=== PATIENT | female | born 1935 | race Caucasian/White ===

== ENCOUNTER → 2017-10-14 | Day surgery (SDC) | payer OTHER ==
[2017-10-11 11:59] LABS: BASOPHILS % 0.3 % (0.0-1.0); EOSINOPHILS # (AUTO) 0.1 (0.0-0.4); EOSINOPHILS % 1.6 % (0.0-6.0); HEMATOCRIT 37.3 % (34.2-44.1); HEMOGLOBIN 12.7 g/dL (12.0-16.0); LYMPHOCYTES # (AUTO) 2.2 (1.0-3.2); LYMPHOCYTES % 24.4 % (18.0-39.1); MEAN CORPUSCULAR HEMOGLOBIN 28.9 pg (28-32); MEAN CORPUSCULAR VOLUME 84.8 fL (81-99); MONOCYTES # (AUTO) 0.7 (0.2-0.8); MONOCYTES % 7.4 % (4.4-11.3); NEUTROPHILS # (AUTO) 5.8 (2.1-6.9); PLATELET COUNT 207 x10e3/uL (140-360); RED CELL DISTRIBUTION WIDTH 13.7 % (11.7-14.4)
[2017-10-11 12:31] LABS: ANION GAP 14.2 mmol/L (8-16); CALCIUM 10.2 mg/dL (8.4-10.2); CREATININE, SERUM 1.23 mg/dL (0.57-1.11); POTASSIUM 4.2 mmol/L (3.5-5.1)
--- NOTE | 2017-10-11 12:39 | Diagnostic Imaging Report ---
PROCEDURE: Frontal and lateral views of the chest. COMPARISON: None. INDICATIONS: PRE-OPERATIVE CHEST X-RAY FOR SLIM. HAND SURGERY FINDINGS: Lines/tubes: None. Lungs: The lungs are well inflated and clear. There is no evidence of pneumonia or pulmonary edema. Pleura: There is no pleural effusion or pneumothorax. Heart and mediastinum: Enlarged cardiac silhouette. Pulmonary vasculature is normal. Atherosclerotic calcification aortic arch. Bones: No acute bony abnormality. IMPRESSION: 1. enlarged cardiac silhouette, without acute cardiopulmonary disease. Delmer Bacon M.D. Dictated by: Delmer Bacon M.D. on 10/11/2017 at 12:41 Electronically approved by: Delmer Bacon M.D. on 10/11/2017 at 12:41
[~2017-10-14] MED LIST: ACETAMINOPHEN 1000 MG/100 ML IV ONE; ATORVASTATIN CA10 MG PO; CARVEDILOL3.125 MG PO; CEFAZOLIN SOD 1 GM VIAL ONE; DEXAMETHASONE SOD PHOS INJ 4 MG/ML VIAL ONE; FENTANYL CITRATE/PF 100MCG/2 ML INJ ONE; FUROSEMIDE40 MG PO; GLIMEPIRIDE2 MG PO; LIDOCAINE HCL 2% LOCAL INJ 5 ML SDV VIAL INJ ONE; LISINOPRIL2.5 MG PO; MUPIROCIN 2% OINT 22 GM TUBE ONE; MYRBETRIQ50 MG PO; ONDANSETRON HCL INJ 2 MG/ML VIAL ONE; PROPOFOL IV EMULSION 10 MG/ML 20 ML VIAL ONE; SEVOFLURANE INHAL SOLN 250 ML PEN BTL ONE; SPIRONOLACTONE25 MG PO; XARELTO10 MG PO
--- OUTSIDE RECORDS SUMMARY | 2017-10-14 05:57 | XMS REPORT ---
Author Organization Unknown Address [address] [place] [address] Phone [phone] Care Team Providers Care Cash On Delivery Clerk Name Role Phone RADHAMES PACHECO MD 82 [phone] DEON RABAGO MD 129 [phone] Allergies Code Code System Name Reaction Severity Status Onset NKDA Medications Name Status Start Date Stop Date Adacel (Tdap Adolesn/Adult)(PF)2 Lf-(2.5-5-3-5)-5 Lf/0.5 mL IM syringe Completed 09/03/2017 atorvastatin 10 mg tablet Active Not available carvedilol 3.125 mg tablet Active Not available doxycycline hyclate 100 mg capsule Completed 03/11/2017 Fluzone High-Dose [id number] (PF) 180 mcg/0.5 mL intramuscular syringe Completed 03/11/2017 furosemide 20 mg tablet Active Not available glimepiride 2 mg tablet Take 1 tablet every day by oral route. Active Not available glimepiride 4 mg tablet Completed 09/03/2017 lisinopril 2.5 mg tablet Active Not available Myrbetriq 50 mg tablet,extended release TAKE 1 TABLET BY MOUTH ONCE DAILY Active Not available ReliaMed Mini Lancing Device Completed 09/03/2017 spironolactone 25 mg tablet Active Not available tobramycin 0.3 %-dexamethasone 0.1 % eye drops,suspension Active Not available True Metrix Glucose Test Strip Active Not available True Metrix Level 1 solution Completed 07/11/2017 TRUEplus Lancets 28 gauge Active Not available Tylenol Arthritis Pain 650 mg tablet,extended release Take 2 tablets every 8 hours by oral route as needed for 90 days. Active Not available Xarelto 15 mg tablet Active Not available Zithromax Z-Bowen 250 mg tablet TAKE 2 TABLETS (500 MG) BY ORAL ROUTE ONCE DAILY FOR 1 DAY THEN 1 TABLET (250 MG) BY ORAL ROUTE ONCE DAILY FOR 4 DAYS Active Not available Zostavax (PF) 19,400 unit/0.65 mL subcutaneous suspension Completed 2017 Problems Name Status Onset Date Source Type II Diabetes Mellitus Uncontrolled Unknown 03/11/2017 Hyperlipidemia Active 03/11/2017 Recurrent Major Depression Active 03/11/2017 Atrial Fibrillation Active 03/11/2017 Chronic Combined Systolic and Diastolic Heart Failure Active 03/11/2017 Chronic Kidney Disease Stage 3 Active 03/11/2017 Osteopenia Active 03/11/2017 Memory Impairment Active 03/11/2017 Chronic Kidney Disease Due to Type 2 Diabetes Mellitus Active 03/11/2017 Nocturia Active 06/29/2017 Benign Hypertensive Heart Disease Active 07/11/2017 Type 2 Diabetes Mellitus Active 07/12/2017 Diabetic Peripheral Neuropathy Active 08/02/2017 Carpal Tunnel Syndrome Active 08/02/2017 Procedures Date Name Performed by Tonsillectomy Information not available 06/28/2017 XR, Knee, 3 View [facility] [address] [place] [address] (Work [address]) 07/11/2017 Bone Density [facility] [address] [facility] [address] [place] [address] (Work Place) Lab Results Date Name Specimen Result Interpretation Description Value Range Status Address 07/11/2017 TSH, Serum or Plasma Normal Tsh 2.18 mIU/L 0.40-4.50 mIU/L [facility]: [address] 07/11/2017 HbA1C (Hemoglobin a1C), Blood High Hemoglobin a1C 6.0 % of total HGB <5.7 % of total HGB [facility]: [address] EAG (mg/dL) 126 (calc) [facility]: [address] EAG (mmol/L) 7.0 (calc) [facility]: [address] 07/11/2017 Lipid Panel, Serum Normal Cholesterol, Total 190 mg/dL <200 mg/dL [facility]: [address] Normal HDL Cholesterol 56 mg/dL >50 mg/dL [facility]: [address] Normal Triglycerides 91 mg/dL <150 mg/dL [facility]: [address] High LDL-cholesterol 115 mg/dL (calc) [facility]: [address] Normal Chol/hdlc Ratio 3.4 (calc) <5.0 (calc) [facility]: [address] High Non HDL Cholesterol 134 mg/dL (calc) <130 mg/dL (calc) [facility]: [address] 07/11/2017 CBC W/ Auto Diff Normal White Blood Cell Count 6.9 thousand/uL 3.8-10.8 thousand/uL [facility]: [address] [place] Normal Red Blood Cell Count 4.60 million/uL 3.80-5.10 million/ uL [facility]: [address] [place] Normal Hemoglobin 12.8 g/dL 11.7-15.5 g/dL [facility]: [address] [place] Normal Hematocrit 40.6 % 35.0-45.0 % [facility]: [address] [place] Normal Mcv 88.3 fL 80.0-100.0 fL [facility]: [address] [place] Normal Mch 27.8 pg 27.0-33.0 pg [facility]: [address] [place] Low Mchc 31.5 g/dL 32.0-36.0 g/dL [facility]: [address] [place] Normal Rdw 13.0 % 11.0-15.0 % [facility]: [address] [place] Normal Platelet Count 204 thousand/uL 140-400 thousand/uL [facility]: [address] [place] Normal Mpv 10.6 fL 7.5-12.5 fL [facility]: [address] [place] Normal Absolute Neutrophils 4271 cells/uL 2727-4065 cells/uL [facility]: [address] [place] Absolute Band Neutrophils [facility]: [address] [place] Absolute Metamyelocytes [facility]: [address] [facility] Absolute Myelocytes [facility]: [address], [place] Absolute Promyelocytes [facility]: [address], [place] Normal Absolute Lymphocytes 1732 cells/uL 850-3900 cells/uL [facility]: [address], [place] Normal Absolute Monocytes 704 cells/uL 200-950 cells/uL [facility]: [address], [place] Normal Absolute Eosinophils 152 cells/uL 15-500 cells/uL [facility]: [address], [place] Normal Absolute Basophils 41 cells/uL 0-200 cells/uL [facility]: [address], [place] Absolute Blasts [facility]: [address], [place] Absolute Nucleated RBC [facility]: [address], [place] Normal Neutrophils 61.9 % [facility]: [address], [place] Band Neutrophils [facility]: [address], [place] Metamyelocytes [facility]: [address], [place] Myelocytes [facility]: [address], [place] Promyelocytes [facility]: [address], [place] Normal Lymphocytes 25.1 % [facility]: [address], [place] Reactive Lymphocytes [facility]: [address], [place] Normal Monocytes 10.2 % [facility]: [address], [place] Normal Eosinophils 2.2 % [facility]: [address], [place] Normal Basophils 0.6 % [facility]: [address], [place] Blasts [facility] : [address], [place] Nucleated RBC [facility]: [address], [place] Comment(s) [facility]: [address], [place] 07/11/2017 CMP, Serum or Plasma High Glucose 105 mg/dL 65-99 mg/ dL [facility]: [address], [place] High Urea Nitrogen (BUN) 28 mg/dL 7-25 mg/dL [facility]: [address] High Creatinine 1.24 mg/dL 0.60-0.88 mg/dL [facility]: [address] Low eGFR Non-afr. Ben[place] 40 mL/min/1.73m2 > or=60 mL/min/ 1.73m2 [facility]: [address] Low eGFR 47 mL/min/1.73m2 > or=60 mL/min/ 1.73m2 [facility]: [address] High BUN/creatinine Ratio 23 (calc) 6-22 (calc) [facility]: [address] Normal Sodium 137 mmol/L 135-146 mmol/L [facility]: [address] Normal Potassium 4.2 mmol/L 3.5-5.3 mmol/L [facility]: [address] Normal Chloride 101 mmol/L 98-110 mmol/L [facility]: [address] Normal Carbon Dioxide 25 mmol/L 20-31 mmol/L [facility]: [address] Normal Calcium 9.8 mg/dL 8.6-10.4 mg/dL [facility]: [address] Normal Protein, Total 7.8 g/dL 6.1-8.1 g/dL [facility]: [address] Normal Albumin 4.2 g/dL 3.6-5.1 g/dL [facility]: [address] Normal Globulin 3.6 g/dL (calc) 1.9-3.7 g/dL (calc) [facility]: [address] Normal Albumin/globulin Ratio 1.2 (calc) 1.0-2.5 (calc) [facility]: [address] Normal Bilirubin, Total 0.8 mg/dL 0.2-1.2 mg/dL [facility]: [address] Normal Alkaline Phosphatase 71 U/L 33-130 U/L [facility]: [address] Normal Ast 19 U/L 10-35 U/L [facility]: [address] [place] [address], [place] Normal Alt 8 U/L 6-29 U/L [facility]: [address] 07/11/2017 Urinalysis, Dipstick Color Color light yellow [facility]: [address] [place] [address], [place] Color Appearance clear [facility]: [address] [place] [address] , [place] Color Glucose negative [facility]: [address] [place] [address] , [place] Color Bilirubin negative [facility]: [address] [place] [address], [place] Color Ketones negative [facility]: [address] [place] [address] , [place] Color Specific Morton 1.020 [facility]: [address] [place] [address], [place] Color Blood negative [facility]: [address] [place] [address], [place] Color PH 7.0 [facility]: [address] [place] [address], [place] Color Protein negative [facility]: [address] [place] [address] , [place] Color Urobilinogen 0.2 [facility]: [address] [place] [address] , [place] Color Nitrites negative [facility] [address] [place] [address], [place] Color Leukocytes negative [facility]: [address] [place] [address], [place] 07/11/2017 Glucose, Fingerstick, Blood Blood Glucose: mg/dl 105 [facility]: [address] [place] [address], [place] 10/24/2016 CMP, Serum or Plasma Normal Glucose 97 mg/dL 65-99 mg/ dL [facility]: [address] High Urea Nitrogen (BUN) 32 mg/dL 7-25 mg/dL [facility]: [address] High Creatinine 1.17 mg/dL 0.60-0.88 mg/dL [facility]: [address] Low eGFR Non-afr. [place] 44 mL/min/1.73m2 > or=60 mL/min/ 1.73m2 [facility]: [address] [facility]anco[facility] Low eGFR 51 mL/min/1.73m2 > or=60 mL/min/ 1.73m2 [facility]: [address] [place] High BUN/creatinine Ratio 27 (calc) 6-22 (calc) [facility]: [address], [place] Normal Sodium 137 mmol/L 135-146 mmol/L [facility]: [address] [facility]anco[facility] Normal Potassium 4.9 mmol/L 3.5-5.3 mmol/L [facility]: [address] [facility] Normal Chloride 104 mmol/L 98-110 mmol/L [facility]: [address] [facility] Normal Carbon Dioxide 22 mmol/L 20-31 mmol/L [facility]: [address] [facility]anco[facility] Normal Calcium 9.7 mg/dL 8.6-10.4 mg/dL [facility]: [address] [facility]anco[facility] Normal Protein, Total 8.1 g/dL 6.1-8.1 g/dL [facility]: [address] [facility]anco[facility] Normal Albumin 4.1 g/dL 3.6-5.1 g/dL [facility]: [address] [place] High Globulin 4.0 g/dL (calc) 1.9-3.7 g/dL (calc) [facility]: [address] [facility]anco[facility] Normal Albumin/globulin Ratio 1.0 (calc) 1.0-2.5 (calc) [facility]: [address] [facility] Normal Bilirubin, Total 0.6 mg/dL 0.2-1.2 mg/dL [facility]: [address] [facility]anco[facility] Normal Alkaline Phosphatase 68 U/L 33-130 U/L [facility]: [address] Polanco[facility] Normal Ast 21 U/L 10-35 U/L [facility]: [address] Polanco[facility] Normal Alt 9 U/L 6-29 U/L [facility]: [address] 10/24/2016 HbA1C (Hemoglobin a1C), Blood High Hemoglobin a1C 6.7 % of total HGB <5.7 % of total HGB [facility]: [address] EAG (mg/dL) 146 (calc) [facility]: [address] EAG (mmol/L) 8.1 (calc) [facility]: [address] Glucose, Fingerstick, Blood Blood Glucose: mg/dl 73 [facility]: [address] [place] [address], [place] Glucose, Fingerstick, Blood Blood Glucose: mg/dl 79 [facility]: [address] [place] [address], [place] Glucose, Fingerstick, Blood Blood Glucose: mg/dl 103 [facility]: [address] Past Encounters 09/03/2017 Type 2 Diabetes Mellitus; Otitis Media; Upper Respiratory Infection Sky Cobos Jr, MD: [address] [phone], Ph. 07/11/2017 Adult Health Examination; Body Mass Index 25-29 - Overweight; Overweight; Advance Directive Discussed with Patient; Depression Screening; At Risk for Falls; Type II Diabetes Mellitus Uncontrolled; Benign Hypertensive Heart Disease ; Hyperlipidemia; Osteopenia; Osteoarthritis of Knee Sky Cobos Jr, MD: [address] [address], Ph. 06/28/2017 Hypertensive Heart and Renal Disease with (Congestive) Heart Failure; Coronary Arteriosclerosis; Chronic Combined Systolic and Diastolic Heart Failure; Atrial Fibrillation; History of Myocardial Infarction; Type 2 Diabetes Mellitus; Hyperlipidemia; Bladder Muscle Dysfunction - Overactive; Recurrent Major Depression; Peripheral Neuropathic Pain; Osteoarthritis of Knee Sky Cobos Jr, MD: [address] [address], Ph. 03/11/2017 Memory Impairment; Osteopenia; Hyperlipidemia; Chronic Combined Systolic and Diastolic Heart Failure; Chronic Kidney Disease Due to Type 2 Diabetes Mellitus ; Atrial Fibrillation; Chronic Kidney Disease Stage 3; Type II Diabetes Mellitus Uncontrolled; Recurrent Major Depression Taj Sandhu MD: [address] [facility] [address] [place] [address], Ph. Social History Smoking Status Never Smoker Vaccine List Vaccine Type influenza, unspecified formulation 01/17/2017 pneumococcal polysaccharide PPV23 09/27/2015 Tdap 07/11/2017 zoster 07/11/2017 Plan of Care Patient Instructions Screening Recommendations 1. Vaccines Pneumococcal: discussed today and information sent with patient in their [place] [employer] health folder Influenza: discussed today and information sent with patient in their [place] [employer] health folder Shingles: discussed today and information sent with patient in their [place] [employer] health folder Tetanus: discussed today and information sent with patient in their [place] [employer] health folder 2. Mammography Screening: discussed today and information sent with patient in their [place] [employer] health folder 3. Colorectal cancer Screening Colonoscopy: discussed today and information sent with patient in their [facility] health folder Fecal Occult Blood: discussed today and information sent with patient in their [place] [employer] health folder 4. Bone Mass Measurement: discussed today 5. Pap test / Pelvic Exam Screening: discussed today 6. Eye Exam Screening: discussed today 7. Cholesterol Screening: discussed today 8. Diabetes Screening: discussed today It was good to see you in the office today for your Medicare Annual Wellness Visit. You have been provided some information on healthy nutrition, including a diet rich in fruits and vegetables, minimizing simple carbohydrates, salt, and saturated fats. I want to encourage regular cardiovascular exercise such as walking at least 30 minutes daily, 5 times per week. Please remember to schedule any preventive health measures that we talked about today. You have also been provided education on fall prevention and community- based lifestyle interventions to help reduce health risks and promote healthy living in your [employer] folder. Reminders Provider Appointments None recorded. Lab None recorded. Referral None recorded. Procedures None recorded. Surgeries None recorded. Imaging None recorded. Vitals 09/03/2017 03:15PM Est Patient Height Blood Pressure 5 ft 3 in 134/80 mm[Hg] 07/11/2017 08:45AM AWV Height Weight BMI Blood Pressure 5 ft 3 in 147 lbs 26 kg/m2 158/84 mm[Hg] 06/28/2017 03:00PM Est Patient Height Weight BMI Blood Pressure 5 ft 3 in 149 lbs 26.4 kg/m2 146/90 mm[Hg] 03/11/2017 09:45AM Est Patient Height Weight BMI Blood Pressure 5 ft 3 in 156 lbs 27.6 kg/m2 140/80 mm[Hg]
--- OUTSIDE RECORDS SUMMARY | 2017-10-14 05:57 | XMS REPORT ---
Author Author [facility] Address Unknown Phone Unavailable Care Team Providers Care Wagon Winder Name Role Phone RADHAMES YEE Unavailable Unavailable Problems This patient has no known problems. Allergies, Adverse Reactions, Alerts This patient has no known allergies or adverse reactions. Medications This patient has no known medications. Results Test Description Test Time Test Comments Text Results Atomic Results Result Comments CHEST 2 VIEWS [place] [address] [place] [address] Patient Name: JAIME HAYWARD MR #: [id number] : 1935 Age/Sex: 81/F Req # : [id number] Adm Physician: Ordered by: RADHAMES YEE MD Report #: [id number] Location: OR Room/Bed: Procedure: [id number] DX/CHEST 2 VIEWS Exam Date: 10/11/17 Exam Time: 1200 REPORT STATUS: Signed PROCEDURE: Frontal and lateral views of the chest. COMPARISON: None. INDICATIONS: PRE-OPERATIVE CHEST X- RAY FOR SLIM. HAND SURGERY FINDINGS: Lines/tubes: None. Lungs : The lungs are well inflated and clear. There is no evidence of pneumonia or pulmonary edema. Pleura: There is no pleural effusion or pneumothorax. Heart and mediastinum: Enlarged cardiac silhouette. Pulmonary vasculature is normal. Atherosclerotic calcification aortic arch. Bones: No acute bony abnormality. IMPRESSION: 1. enlarged cardiac silhouette, without acute cardiopulmonary disease. Génesis Vila M.D. Dictated by: Génesis Vila M.D. on 10/11/2017 at 12:41 Electronically approved by: Génesis Vila M.D. on 10/11/2017 at 12 :41 Dictated By: GÉNESIS IVLA MD 1241 Transcribed By: THAI on 10/11/17 1241 COPY TO: RADHAMES YEE MD
--- NOTE | 2017-10-14 11:17 | Operative Report ---
DATE OF PROCEDURE: October 14, 2017 DETECTIVE SERGEANT: Carson Moreno PA-C The patient was brought to the operating room for induction of anesthesia. Throughout this case, my PA's assistance was necessary for retraction of soft tissue and positioning of the extremity. This allows for efficient and technically successful execution of the operation and is considered medically necessary. PREOPERATIVE DIAGNOSIS: Bilateral carpal tunnel syndrome. POSTOPERATIVE DIAGNOSIS: Bilateral carpal tunnel syndrome. PROCEDURE: Bilateral endoscopic carpal tunnel release. INDICATIONS: The patient is an 81-year-old lady who has clinic signs and symptoms consistent with severe bilateral carpal tunnel syndrome. She has failed conservative management and would like to proceed with definitive intervention. The risks and benefits of an endoscopic versus open carpal tunnel release have been explained. She and her son state they understand and wish to proceed. DESCRIPTION OF PROCEDURE: The patient was brought to the operating room and placed under general anesthetic. Both upper extremities were prepped and draped in a sterile manner. A preoperative time out was performed. Initial attention was directed towards the right side. The extremity was exsanguinated, and a proximal tourniquet was briefly inflated to 250 mmHg. A transverse incision was made over the flexion crease of the right wrist. The palmaris longus was retracted to the radial side of the wound. The flexor retinaculum was elevated and incised with a pair of tenotomy scissors. A small Ragnell retractor was placed. An elevator was used to tease the tenosynovium off of the undersurface of the transverse carpal ligament. Dilators were placed, and the hook of the hamate was palpated. The MicroAire endoscope was placed into the carpal tunnel. The undersurface of the transverse carpal ligament could be cleanly visualized without evidence of soft-tissue interposition. The knife was deployed and the ligament was cut from distal to proximal. Full-thickness cut was noted. The proximal retinaculum was incised under direct visualization. The incision was then closed with 2 interrupted nylon stitches. A sterile bandage was applied. The tourniquet was deflated. The same procedure was performed on the left side. The patient was ultimately extubated and transported to the recovery room in stable condition. There was no blood loss, and all needle and sponge counts were correct. Job#: [id number]
== END | disposition home or self-care (01) ==
LOC: OR 05:55
PROVIDERS: ATTEND Specialist
CPT/HCPCS: 36415; 71046; 80048; 82948; 85025; J0690; J1100; J2001; J2405